=== PATIENT | female | born 1955 | race Caucasian/White ===

== ENCOUNTER 2016-12-09 20:23 | Emergency (ER) | payer MEDICARE ==
[~2016-12-09] VITALS: Ht 147.3 cm; Wt 58.2 kg
[2016-12-09 20:46] VITALS: BP 186/113; PULSE 141; RESP 20; TEMP 98.8; O2SAT 97
--- NOTE | 2016-12-09 21:41 | PD ---
HPI Chief Complaint: Skin Problem Time Seen by Provider: 21:38 Travel History International Travel<30 days: No Contact w/Intl Traveler<30days: No Traveled to known affect area: No History of Present Illness HPI This 61-year-old female says she's had bugs all over her body for months. She has used permethrin. She has taken in the ivermectin by mouth. He says the bugs or numbness tingling in her vagina, her nose and ears. She feels a popping in her ears. She has used multiple herbal preparations. She has itching. She has a history of Bianka granulomatosis and Sjogren syndrome. She is not on prednisone now. She lives in [facility]. [facility] Past Medical History ?: Not Social History Tobacco Use: No Allergies-Medications (Allergen,Severity, Reaction): Coded Allergies: Prednisone (Verified Allergy, Severe, Shakes, Tremors, 12/09/16) Review of Systems General / Constitutional: No: Fever, Chills Eyes: No: Diploplia HENT: No: Headaches Cardiovascular: No: Chest Pain or Discomfort Respiratory: No: Shortness of Breath Gastrointestinal: No: Nausea, Vomiting Genitourinary: No: Urgency Skin: Positive Rash, Positive Itching Neurologic: No: Weakness, Dizziness Hematologic/Lymphatic: No: Easy Bruising Physical Exam Narrative GENERAL: Well-developed female SKIN: Warm and dry. There are a few erythematous papules on the midabdomen and on the back. I don't see any bugs. There is a mass in the vulva. 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 Have told the patient she needs to see a cost manager to have that evaluated for possible cancer. HEAD: Atraumatic. Normocephalic. EYES: Pupils equal and round. No scleral icterus. No injection or drainage. ENT: No nasal bleeding or discharge. Mucous membranes pink and moist. NECK: Trachea midline. No JVD. CARDIOVASCULAR: Regular rate and rhythm. No murmur appreciated. RESPIRATORY: No accessory muscle use. Clear to auscultation. Breath sounds equal bilaterally. GASTROINTESTINAL: Abdomen soft, non-tender, nondistended. Hepatic and splenic margins not palpable. MUSCULOSKELETAL: No obvious deformities. No clubbing. No cyanosis. No edema. NEUROLOGICAL: Awake and alert. No obvious cranial nerve deficits. Motor grossly within normal limits. Normal speech. PSYCHIATRIC: Somewhat agitated Data Data Last Documented VS Vital Signs Date Time Temp Pulse Resp B/P Pulse Ox O2 Delivery O2 Flow Rate FiO2 12/09/16 20:46 98.8 141 20 186/113 97 MDM Medical Decision Making Medical Screen Exam Complete: Yes Emergency Medical Condition: Yes Medical Record Reviewed: Yes Differential Diagnosis Differential includes scabies, lice, delusional parasitosis, morgellons syndrome Narrative Course I do not see any bugs on repeated examinations. I suspect this may be delusional parasitosis. I have discussed this with the patient and she does not accept this at all. I recommended she see a champagne maker for definitive ruling out an organic disease. She has become somewhat upset and has left the emergency department. Diagnosis Primary Impression: Delusions of parasitosis Disposition: 01 DISCHARGE HOME Condition: Stable Yonatan King MD Dec 09, 2016 21:41
[2016-12-09] MEDS ORDERED: SIMV20TA PO (21:51)
[2016-12-09] MEDS ORDERED: LORA1TAB12 PO (21:51)
== END 2016-12-09 21:55 | disposition home or self-care (01) ==
LOC: PHED 20:23
DX: F22 Delusional disorders (principal)
CPT/HCPCS: 99283